=== PATIENT | female | born 1960 | race Caucasian/White ===

== ENCOUNTER 2017-07-17 18:16 | Emergency (ER) | payer OTHER ==
[~2017-07-17] VITALS: Ht 162.6 cm; Wt 86.2 kg
[~2017-07-17 18:16] MED LIST: CIPRO250 M1 PO; COMPAZINE10 MG PO; COUMADIN 5 MG TA5 M1 PO; DARVOCET-N 1001 EAC1 PO; IBUPROFEN 800800 M1 PO; JANTOVEN10 MG PO; LEVOTHYROXINE0.05 MG PO; LISINOPRIL10 MG PO; LOVENOX SC; MACROBID 100 M100 M1 PO; NORCO 5-325 TA1 EACH PO; XARELTO10 MG PO; XARELTO20 MG PO; ZOFRAN ODT4 MG PO
[2017-07-17] MEDS ORDERED: FLONASE 0.05%50 MCG NASAL (18:28)
[2017-07-17 18:52] LABS: ABSOLUTE BASOPHILS 0.1 thou/uL (0.0-0.2); ABSOLUTE EOSINOPHILS 0.2 thou/uL (0.0-0.7); ABSOLUTE LYMPHOCYTES 2.8 thou/uL (0.8-5.3); ABSOLUTE MONOCYTES 1.1 thou/uL (0.0-1.2); ABSOLUTE NEUTROPHILS 9.7 thou/uL (1.6-8.1); BASOPHILS 0.4 %; EOSINOPHILS 1.3 %; HEMOGLOBIN 13.5 gm/dL (12.0-15.0); LYMPHOCYTES 20.2 %; MCH 29.1 pg (26.0-34.0); MCHC 33.7 g/dL (28.0-37.0); MCV 86.1 fL (80.0-100.0); MONOCYTES 7.8 %; MPV 8.4 fl. (7.2-11.1); NUCLEATED RBCS 0 /100WBC; PLATELET COUNT* 271 thou/uL (150-400); POLYS 70.3 %; RBC 4.65 mil/uL (4.20-5.00); WBC 13.8 thou/uL (4.0-11.0)
[2017-07-17 19:02] LABS: ANION GAP 7 mmol/L (7-16); BUN 6 mg/dL (7-18); CALCIUM 8.5 mg/dL (8.5-10.1); CHLORIDE 104 mmol/L (98-107); CO2 34 mmol/L (21-32); GLUCOSE 94 mg/dL (70-99); SODIUM 145 mmol/L (136-145)
[2017-07-17 19:17] LABS: ALBUMIN 3.6 g/dL (3.4-5.0); ALKALINE PHOSPHATASE 89 U/L (46-116); CK-MB MASS 0.8 ng/mL (<0.5-3.6); LIPASE 142 U/L (73-393); NT-PRO BRAIN NAT PEPTIDE 82 pg/mL (<300); SGOT 16 U/L (15-37); SGPT 24 U/L (30-65); TOTAL BILIRUBIN 0.3 mg/dL (<0.1-1.0); TOTAL PROTEIN 7.4 g/dL (6.4-8.2); TROPONIN-I LEVEL <0.06 ng/mL (<0.06)
[2017-07-17 19:24] LABS: APTT 27.4 Seconds (25.0-31.3); PROTIME 10.1 Seconds (9.20-11.50)
[2017-07-17] MEDS ORDERED: POTASSIUM20 PO (19:27)
[2017-07-17] MEDS ORDERED: ZPAK PO (19:27)
[2017-07-17] MEDS ORDERED: PROMETHAZINE V473 ML PO (19:27)
[2017-07-17] MEDS ORDERED: TESSALON PERLE100 MG PO (19:27)
[2017-07-17] MEDS ORDERED: PROAIR HFA8.5 GM INH (19:27)
[2017-07-17 19:59] VITALS: BP 133/67
--- NOTE | 2017-07-18 15:07 | EKG ---
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[employer]: : 1960 Requested By: Freddy Valentin Order Number: [id number] MD: Blade Jenkins Measurements Intervals Howard Rate: 89 P: 59 NC: 148 QRS: 19 QRSD: 95 T: 39 QT: 362 QTc: 441 Interpretive Statements Sinus rhythm Left ventricular hypertrophy Inferior infarct, old Compared to ECG 04/22/2014 13:15:27 Left ventricular hypertrophy now present Sinus tachycardia no longer present T-wave abnormality no longer present Myocardial infarct finding still present Electronically Signed On 07-18-2017 15:07:41 CDT by Blade Jenkins [email or web address] <ELECTRONICALLY SIGNED> By: Blade Jenkins MD, FACC 07/18/17 1507 1820 1820 Blade Jenkins MD, [facility] /EPI
== END 2017-07-17 20:00 | disposition home or self-care (01) ==
LOC: M.ERS 18:16
PROVIDERS: Family Medicine
DX: J18.8 Other pneumonia, unspecified organism (principal); E87.6 Hypokalemia; E03.9 Hypothyroidism, unspecified; I10 Essential (primary) hypertension; Z90.49 Acquired absence of other specified parts of digestive tract; Z88.8 Allergy status to other drugs, medicaments and biological substances; Z88.1 Allergy status to other antibiotic agents

== ENCOUNTER → 2017-08-16 | Outpatient (CLI) | payer OTHER ==
[~2017-08-16] MED LIST changes: +FLONASE 0.05%50 MCG NASAL; +POTASSIUM20 PO; +PROAIR HFA8.5 GM INH; +PROMETHAZINE V473 ML PO; +TESSALON PERLE100 MG PO; +ZPAK PO
--- NOTE | 2017-08-16 15:35 | EXE ---
[place] [address] STRESS ECHOCARDIOGRAM Name: ROMEL HOGAN Room: [facility]#: [id number] Admission: 08/16/17 Attend Phys: Gurpreet Reyes MD Discharge: Date of : 62 Date of Service: 08/16/17 1535 Report #: [id number] THIS REPORT FOR: //name// APPROVED REPORT Study performed: 08/16/2017 11:02:46 Exam: Dobutamine Stress Echo Indication: Chest pain, Abnormal EKG Patient Location: Out-Patient Stress Nurse: Shala Maguire RN Supervising Physician: Blade Jenkins MD Status: routine Ht: 5 ft 4 in HR: 72 bpm BP: 134/75 mmHg BMI: 100 Rhythm: 56, NSR Medical History Cardiac Risk Factors: HTN Procedure The patient underwent a Pharmacological Stress Test using Dobutamine. Blood pressure, heart rate, and EKG were monitored. An Echocardiogram was performed by plastic surgery technician in four stages in quad fashion. At peak stress, four selected images were obtained and placed side by side with resting images for comparison. Stress Test Details Stress Test: Exercise stress testing was performed using a Emanuel protocol. HR Resting HR: 72 bpm Max Heart Rate (APMHR): 164 bpm Max HR Achieved: 141 bpm Target HR (85% APMHR): 139 bpm % of APMHR: 85 Recovery HR: 92 bpm HR response to stress: Normal HR response to stress BP Resting BP: 134/75 mmHg Max BP: 100/56 mmHg Recovery BP: 121/70 [place] [address] STRESS ECHOCARDIOGRAM Name: ROMEL HOGAN Room: [facility]#: [id number] Admission: 08/16/17 Attend Phys: Gurpreet Reyes MD Discharge: Date of : 62 Date of Service: 08/16/17 1535 Report #: [id number] Clinical Reason for Termination: Completed protocol Pre-Stress Echo The resting Echocardiogram showed normal left ventricular contractility with an estimated Ejection Fraction of about 55-60%. Normal wall motion in all segments on baseline images. Post-Stress Echo The stress Echocardiogram showed normal left ventricular contractility with an estimated Ejection Fraction of about >70%. Normal augmentation of wall motion in all segments on post stress images. Clinical Normal augmentation of myocardial wall segments using a 17 segment model. Conclusion Clinical Response: Non-ischemic Stress ECG Response: Non-ischemic Stress Echo Images: Non-ischemic Other Information Study Quality: Good <ELECTRONICALLY SIGNED> By: Blade Jenkins MD, [facility] 08/16/17 1535 1535 1535 Blade Jenkins MD, FACC /INF
== END ==
LOC: M.CRD 10:24
DX: R07.1 Chest pain on breathing (principal); R94.31 Abnormal electrocardiogram [ECG] [EKG]